=== PATIENT | female | born 1975 | race Caucasian/White ===

== ENCOUNTER 2020-07-12 17:41 | Observation (INO) | payer BC, OTHER ==
[~2020-07-12] VITALS: Ht 165.1 cm; Wt 97.1 kg
[2020-07-12] MEDS ORDERED: COMMUNICATION ORDER XX ONE (17:45)
[2020-07-12] MEDS ORDERED: BETAMET ACET/BETAMET NA PH 30 MG/5 ML VIAL IM ONE (17:45)
[2020-07-12] MEDS ORDERED: NS IV ONE (18:15)
[2020-07-12] MEDS ORDERED: [UNRECOGNIZED DRUG - OTHER] IV ONE (18:15)
[2020-07-12] MEDS: LR 1,000 ML IV SCH ×2 (20:50→22:31)
[2020-07-12] MEDS ORDERED: ONDANSETRON HCL 4 MG/2 ML VIAL ONE (21:19)
[2020-07-12] MEDS ORDERED: ONDANSETRON HCL 4 MG/2 ML VIAL IVP PRN (21:30)
== END 2020-07-12 23:25 | disposition home or self-care (01) ==
LOC: SPU 17:41
PROVIDERS: ADMIT Specialist; ATTEND Specialist
DX: Z34.83 Encounter for supervision of other normal pregnancy, third trimester (principal); Z3A.33 33 weeks gestation of pregnancy
CPT/HCPCS: 59025; 81002; 94760; 96360; 96361; 96372; G0378; J2405; J7120; 59899; J0702; J2916; J7040

== ENCOUNTER 2020-07-15 11:05 | Inpatient (IN) | payer BC, SELFPAY ==
[~2020-07-15] VITALS: Ht 165.1 cm; Wt 98.9 kg
[2020-07-15] MEDS: LR 1,000 ML IV SCH ×2 (11:30→19:03)
[2020-07-15] MEDS ORDERED: TERBUTALINE SULFATE 1 MG/ML VIAL SUBCUT ONE (11:45)
[2020-07-15] MEDS ORDERED: BETAMET ACET/BETAMET NA PH 30 MG/5 ML VIAL IM ONE (14:53)
[2020-07-16] MEDS: LR 1,000 ML IV SCH ×3 (02:48→20:00)
[2020-07-16] MEDS ORDERED: BETAMET ACET/BETAMET NA PH 30 MG/5 ML VIAL IM ONE (15:00)
[2020-07-16] MEDS ORDERED: CEFAZOLIN 2 GM IVPB PREMIX 50 ML IV ONE (17:00)
[2020-07-16 17:28] LABS: BASOPHILS % (AUTO) 0.2 % (0.0-2.0); EOSINOPHILS % (AUTO) 0.1 % (0.0-4.0); HEMATOCRIT 26.4 % (36-48); HEMOGLOBIN 8.2 g/dL (12.0-16.0); LYMPHOCYTES # (AUTO) 1.2 K/uL (1.0-5.5); LYMPHOCYTES % (AUTO) 11.3 % (20.5-51.5); MEAN CORPUSCULAR HEMOGLOBIN 21 pg (27-31); MEAN CORPUSCULAR HGB CONC 31 % (32-36); MEAN CORPUSCULAR VOLUME 68 fL (79.0-98.0); MONOCYTES # (AUTO) 0.4 K/uL (0.0-1.0); MONOCYTES % (AUTO) 4.2 % (1.7-9.3); NEUTROPHILS % (AUTO) 84.2 % (40.0-70.0); PLATELET COUNT (AUTO) 203 K/uL (130-430); RED BLOOD CELL COUNT(AUTO) 3.86 MIL/uL (4.2-6.2); WHITE BLOOD COUNT (AUTO) 10.6 K/uL (4.8-10.8)
[2020-07-16] MEDS ORDERED: NS IV ONE (18:30)
[2020-07-16] MEDS ORDERED: IRON SUCROSE COMPLEX IV ONE (18:30)
[2020-07-16 19:59] LABS: BILIRUBIN,URINE 1+ (NEGATIVE); BLOOD, URINE NEGATIVE (NEGATIVE); CLARITY/URINE CLEAR (CLEAR); COLOR,URINE YELLOW (YELLOW); GLUCOSE,URINE NEGATIVE (NEGATIVE); KETONES,URINE 3+ (NEGATIVE); LEUKOCYTE ESTERASE ,URINE TRACE (NEGATIVE); NITRITE, URINE NEGATIVE (NEGATIVE); PROTEIN URINE NEGATIVE (NEGATIVE); UROBILINOGEN,URINE 0.2 (0.2-1.0)
[2020-07-16 20:26] LABS: RBC,URINE 0-3 /HPF (0-3)
[2020-07-16 20:27] LABS: BACTERIA,URINE RARE /HPF (None Seen); MUCUS,URINE None Seen /LPF (None Seen); WBC,URINE 0-3 /HPF (0-3)
[2020-07-16] MEDS: D5LR 1,000 ML IV SCH (20:50)
[2020-07-16 21:02] LABS: CALCIUM 8.1 mg/dL (8.4-11.0); CREATININE 0.66 mg/dL (0.55-1.30); POTASSIUM 4.2 mmol/L (3.5-5.1)
[2020-07-16 21:06] LABS: ALBUMIN 2.4 g/dL (3.4-4.8); TOTAL BILIRUBIN 0.3 mg/dL (0.0-1.0)
[2020-07-17] MEDS: ONDANSETRON HCL 4 MG/2 ML VIAL IVP PRN (08:15)
[2020-07-17 10:28] VITALS: BP_SYST 132
[2020-07-17] MEDS: D5LR 1,000 ML IV SCH (12:52)
[2020-07-17] MEDS ORDERED: IRON SUCROSE COMPLEX IV ONE (18:30)
[2020-07-17] MEDS ORDERED: NS IV ONE (18:30)
[2020-07-17] MEDS ORDERED: DIPHENHYDRAMINE INJ 50 MG/ML VIAL IM ONE (18:30)
[2020-07-18] MEDS: D5LR 1,000 ML IV SCH ×3 (08:43→21:01)
[2020-07-19] MEDS: D5LR 1,000 ML IV SCH ×3 (05:19→22:50)
[2020-07-20] MEDS: D5LR 1,000 ML IV SCH (07:13)
[2020-07-20] MEDS: ONDANSETRON HCL 4 MG/2 ML VIAL IVP PRN (11:05)
[2020-07-20] MEDS ORDERED: ACETAMINOPHEN 500 MG TABLET ONE (21:01)
[2020-07-21] MEDS: D5LR 1,000 ML IV SCH ×2 (00:50→09:26)
[2020-07-21] MEDS: PRENATAL VITS W-CA,FE,FA(<1MG) (PRENATAL) TABLET PO SCH (17:30)
[2020-07-21 20:06] LABS: FTA-Ab (T PALLIDUM) Non Reactive (Non Reactive)
[2020-07-22] MEDS: ACETAMINOPHEN 325 MG TABLET PO PRN (01:47)
[2020-07-22] MEDS: PRENATAL VITS W-CA,FE,FA(<1MG) (PRENATAL) TABLET PO SCH (06:00)
[2020-07-22] MEDS: ONDANSETRON HCL 4 MG/2 ML VIAL IVP PRN (12:24)
[2020-07-23] MEDS: ONDANSETRON HCL 4 MG/2 ML VIAL IVP PRN (17:19)
[2020-07-24] MEDS: ONDANSETRON HCL 4 MG/2 ML VIAL IVP PRN (08:11)
[2020-07-24] MEDS ORDERED: NS IV ONE (18:30)
[2020-07-24] MEDS ORDERED: IRON SUCROSE COMPLEX IV ONE (18:30)
[2020-07-25] MEDS: ONDANSETRON HCL 4 MG/2 ML VIAL IVP PRN (08:13)
[2020-07-25] MEDS: PRENATAL VITS W-CA,FE,FA(<1MG) (PRENATAL) TABLET PO SCH (09:00)
[2020-07-26] MEDS: PRENATAL VITS W-CA,FE,FA(<1MG) (PRENATAL) TABLET PO SCH (07:26)
[2020-07-26] MEDS: ONDANSETRON 4 MG ODT TAB PO PRN (10:11)
[2020-07-27] MEDS: ACETAMINOPHEN 325 MG TABLET PO PRN (11:48)
[2020-07-29] MEDS: PRENATAL VITS W-CA,FE,FA(<1MG) (PRENATAL) TABLET PO SCH ×2 (08:47→09:00)
[2020-07-30] MEDS: ONDANSETRON 4 MG ODT TAB PO PRN (10:46)
[2020-08-03] MEDS: ONDANSETRON 4 MG ODT TAB PO PRN (11:04)
[2020-08-05] MEDS: PRENATAL VITS W-CA,FE,FA(<1MG) (PRENATAL) TABLET PO SCH (09:00)
[2020-08-05] MEDS: ONDANSETRON 4 MG ODT TAB PO PRN (12:01)
[2020-08-06] MEDS: PRENATAL VITS W-CA,FE,FA(<1MG) (PRENATAL) TABLET PO SCH (09:00)
[2020-08-06 11:43] LABS: BASOPHILS % (AUTO) 0.8 % (0.0-2.0); EOSINOPHILS # (AUTO) 0.1 K/uL (0.0-0.4); EOSINOPHILS % (AUTO) 1.2 % (0.0-4.0); HEMATOCRIT 30.6 % (36-48); HEMOGLOBIN 9.8 g/dL (12.0-16.0); LYMPHOCYTES # (AUTO) 1.3 K/uL (1.0-5.5); LYMPHOCYTES % (AUTO) 22.4 % (20.5-51.5); MEAN CORPUSCULAR HEMOGLOBIN 24 pg (27-31); MEAN CORPUSCULAR HGB CONC 32 % (32-36); MEAN CORPUSCULAR VOLUME 76 fL (79.0-98.0); MONOCYTES # (AUTO) 0.2 K/uL (0.0-1.0); MONOCYTES % (AUTO) 3.7 % (1.7-9.3); NEUTROPHILS # (AUTO) 4.1 K/uL (1.8-7.7); NEUTROPHILS % (AUTO) 71.9 % (40.0-70.0); PLATELET COUNT (AUTO) 181 K/uL (130-430); RED BLOOD CELL COUNT(AUTO) 4.04 MIL/uL (4.2-6.2); RED CELL DISTRIBUTION WIDTH 34.1 % (9.0-15.0); WHITE BLOOD COUNT (AUTO) 5.8 K/uL (4.8-10.8)
[2020-08-09 06:27] LABS: BASOPHILS % (AUTO) 0.3 % (0.0-2.0); EOSINOPHILS # (AUTO) 0.1 K/uL (0.0-0.4); HEMATOCRIT 29.9 % (36-48); HEMOGLOBIN 9.7 g/dL (12.0-16.0); LYMPHOCYTES # (AUTO) 2.1 K/uL (1.0-5.5); LYMPHOCYTES % (AUTO) 29.7 % (20.5-51.5); MEAN CORPUSCULAR HEMOGLOBIN 25 pg (27-31); MEAN CORPUSCULAR HGB CONC 32 % (32-36); MEAN CORPUSCULAR VOLUME 77 fL (79.0-98.0); MONOCYTES # (AUTO) 0.4 K/uL (0.0-1.0); MONOCYTES % (AUTO) 5.9 % (1.7-9.3); NEUTROPHILS # (AUTO) 4.4 K/uL (1.8-7.7); NEUTROPHILS % (AUTO) 63.1 % (40.0-70.0); PLATELET COUNT (AUTO) 146 K/uL (130-430); RED BLOOD CELL COUNT(AUTO) 3.89 MIL/uL (4.2-6.2); RED CELL DISTRIBUTION WIDTH 34.6 % (9.0-15.0); WHITE BLOOD COUNT (AUTO) 6.9 K/uL (4.8-10.8)
[2020-08-09] MEDS: ONDANSETRON 4 MG ODT TAB PO PRN (14:46)
[2020-08-10] MEDS: ONDANSETRON 4 MG ODT TAB PO PRN ×2 (00:16→08:46)
[2020-08-10] MEDS: PRENATAL VITS W-CA,FE,FA(<1MG) (PRENATAL) TABLET PO SCH (09:00)
[2020-08-11] MEDS ORDERED: CEFAZOLIN 2 GM IVPB PREMIX 50 ML IV ONE (07:45)
[2020-08-11] MEDS ORDERED: LR 1,000 ML IV ONE ×2 (09:00→13:15)
[2020-08-11] MEDS ORDERED: OXYTOCIN 10 UNIT/ML VIAL IV ONE (11:50)
[2020-08-11] MEDS ORDERED: METOCLOPRAMIDE HCL 10 MG/10 ML UDC PO ONE (11:50)
[2020-08-11] MEDS ORDERED: DIPH-TET-PERTUS Vaccine 0.5 ML VIAL (ADACEL) I.M. PRN (13:00)
[2020-08-11] MEDS ORDERED: OXYCODONE/ACETAMINOPHEN 5-325 TABLET PO PRN (13:00)
[2020-08-11] MEDS ORDERED: OXYCODONE/ACETAMINOPHEN *10*mg/325 mg TABLET PO PRN (13:00)
[2020-08-11] MEDS ORDERED: BISACODYL 10 MG/SUPPOSITORY RC PRN (13:00)
[2020-08-11] MEDS ORDERED: MEASLES,MUMPS&RUBELLA VACC/PF 12500 UNIT/0.5 ML VIAL SUBQ PRN (13:00)
[2020-08-11] MEDS ORDERED: RHO(D) IMMUNE GLOBULIN/MALTOSE 1500 UNITS/1.3 ML (WINHRO) IM PRN (13:00)
[2020-08-11] MEDS ORDERED: LR 1,000 ML IV SCH (13:00)
[2020-08-11] MEDS ORDERED: HYDROcodone/ACETAMIN 5-325 MG TAB (NORCO/ VICODIN) PO PRN (13:00)
[2020-08-11] MEDS ORDERED: ANUSOL 1 EA SUPP.RECT (PREPARATION H) RC PRN (13:00)
[2020-08-11] MEDS ORDERED: LANOLIN 7 GM OINT. TP PRN (13:00)
[2020-08-11] MEDS ORDERED: NALOXONE HCL 0.4 MG/ML AMP (NARCAN) IVP PRN ×2 (13:00→13:15)
[2020-08-11] MEDS ORDERED: DOCUSATE SODIUM 100 MG CAPSULE PO PRN (13:00)
[2020-08-11] MEDS ORDERED: TEMAZEPAM 15 MG CAPSULE PO PRN (13:00)
[2020-08-11] MEDS ORDERED: SENNOSIDES/DOCUSATE SODIUM 1 TAB TABLET(SENOKOT-S) PO PRN (13:00)
[2020-08-11 13:10] VITALS: BP_SYST 117
[2020-08-11] MEDS ORDERED: KETOROLAC TROMETHAMINE 60 MG/2 ML VIAL IM PRN (13:15)
[2020-08-11] MEDS ORDERED: ONDANSETRON HCL 4 MG/2 ML VIAL IVP PRN (13:15)
[2020-08-11] MEDS ORDERED: MORPHINE SULFATE 10MG/10ML PF AMP SP SCH (13:15)
[2020-08-11] MEDS: DIPHENHYDRAMINE INJ 50 MG/ML VIAL IM PRN (14:35)
[2020-08-11] MEDS: CEFAZOLIN 1 GM IVPB PREMIX 50 ML IV SCH (18:10)
[2020-08-11] MEDS: KETOROLAC TROMETHAMINE 30 MG VIAL IVP SCH (18:10)
[2020-08-11] MEDS: OXYTOCIN/0.9 % SODIUM CHLORIDE 1,000 ML IV SCH (18:45)
[2020-08-12] MEDS: CEFAZOLIN 1 GM IVPB PREMIX 50 ML IV SCH ×2 (00:03→06:34)
[2020-08-12] MEDS: KETOROLAC TROMETHAMINE 30 MG VIAL IVP SCH ×3 (00:03→12:13)
[2020-08-12] MEDS: DIPHENHYDRAMINE INJ 50 MG/ML VIAL IM PRN (00:04)
[2020-08-12] MEDS: OXYTOCIN/0.9 % SODIUM CHLORIDE 1,000 ML IV SCH (02:00)
[2020-08-12 06:54] LABS: BASOPHILS % (AUTO) 0.3 % (0.0-2.0); EOSINOPHILS # (AUTO) 0.1 K/uL (0.0-0.4); EOSINOPHILS % (AUTO) 1.1 % (0.0-4.0); HEMOGLOBIN 9.2 g/dL (12.0-16.0); LYMPHOCYTES # (AUTO) 1.3 K/uL (1.0-5.5); LYMPHOCYTES % (AUTO) 18.6 % (20.5-51.5); MEAN CORPUSCULAR HEMOGLOBIN 25 pg (27-31); MEAN CORPUSCULAR HGB CONC 32 % (32-36); MEAN CORPUSCULAR VOLUME 78 fL (79.0-98.0); MONOCYTES # (AUTO) 0.3 K/uL (0.0-1.0); MONOCYTES % (AUTO) 4.4 % (1.7-9.3); NEUTROPHILS # (AUTO) 5.3 K/uL (1.8-7.7); NEUTROPHILS % (AUTO) 75.6 % (40.0-70.0); PLATELET COUNT (AUTO) 115 K/uL (130-430); RED BLOOD CELL COUNT(AUTO) 3.71 MIL/uL (4.2-6.2); RED CELL DISTRIBUTION WIDTH 34.2 % (9.0-15.0)
[2020-08-12] MEDS: IBUPROFEN 600 MG TABLET PO SCH (18:09)
[2020-08-12] MEDS: SIMETHICONE 80 MG TAB.CHEW PO PRN (21:32)
[2020-08-13] MEDS: IBUPROFEN 600 MG TABLET PO SCH ×4 (06:00→12:55)
[2020-08-13] MEDS: SIMETHICONE 80 MG TAB.CHEW PO PRN (12:33)
== END 2020-08-13 15:05 | disposition home or self-care (01) | DRG 784 ==
LOC: SPU 11:05 → UNDOADMOB 11:05 → INTOOBSV 16:40 → OBSVTOIN 16:40 → SPU 07-16 16:53 → OBSVTOIN 07-16 16:53 → SPU 07-17 09:45
PROVIDERS: ADMIT Specialist; ATTEND Specialist
PROC: 10D00Z1 Extraction of Products of Conception, Low, Open Approach (ICD-10-PCS; principal; 2020-08-01)
PROC: 0UL70CZ Occlusion of Bilateral Fallopian Tubes with Extraluminal Device, Open Approach (ICD-10-PCS; 2020-08-01)
DX: O34.211 Maternal care for low transverse scar from previous cesarean delivery (principal); K90.9 Intestinal malabsorption, unspecified; O99.02 Anemia complicating childbirth; O69.81X0 Labor and delivery complicated by cord around neck, without compression, not applicable or unspecified; O76 Abnormality in fetal heart rate and rhythm complicating labor and delivery; O99.62 Diseases of the digestive system complicating childbirth; D64.9 Anemia, unspecified; O99.844 Bariatric surgery status complicating childbirth; Z20.822 Contact with and (suspected) exposure to COVID-19; Z3A.38 38 weeks gestation of pregnancy; Z37.0 Single live birth; Z30.2 Encounter for sterilization
CPT/HCPCS: 36415; 80053; 81000; 85025; 86592; 86780; 86886; 86900; 86901; G0378; J0690; J0702; J1200; J1756; J1885; J2405; J2590; J7050; J7120; J8597; Q0162